=== PATIENT | female | born 1975 | race African-American/Black ===

== ENCOUNTER 2018-06-30 05:24 | Day surgery (SDC) | payer BC, OTHER ==
[2018-06-29 14:27] VITALS: BMI 23.9
[2018-06-30] MEDS ORDERED: PROPOFOL 20 ML ONE (09:35)
[2018-06-30] MEDS ORDERED: KETOROLAC TROMETHAMINE 30 MG/1 ML VIAL ONE (09:35)
[2018-06-30] MEDS ORDERED: DEXAMETHASONE SOD PHOSPHATE 4 MG/1 ML VIAL ONE (09:35)
[2018-06-30] MEDS ORDERED: MIDAZOLAM HCL 2 MG/2 ML SINGLE DOSE VIAL ONE (09:35)
[2018-06-30] MEDS ORDERED: ROCURONIUM BROMIDE 50 MG/5 ML VIAL ONE (09:37)
--- NOTE | 2018-06-30 09:40 | HP ---
History & Physical Update - Physical Physical: No Change - Assessment Assessment: No Change - Plan Plan: No Change
[2018-06-30] MEDS ORDERED: BUPIVACAINE HCL/PF 0.5% (5MG/ML) 10 ML VIAL ONE (10:08)
[2018-06-30] MEDS ORDERED: BUPIVACAINE HCL/PF (5 MG/ML) 30 ML VIAL IJ ONE ×2 (10:39→10:55)
[2018-06-30] MEDS ORDERED: NEOSTIGMINE METHYLSULFATE 0.5 MG/ML - 10 ML MDV ONE (10:51)
[2018-06-30] MEDS ORDERED: GLYCOPYRROLATE 0.2 MG/1 ML VIAL ONE (10:51)
--- NOTE | 2018-06-30 11:27 | OP ---
Operative Note - Note: Operative Date: 06/30/18 Pre-Operative Diagnosis: Multiparity voluntary sterilization Operation: Bilateral laparoscopic salpingectomy Findings: as dictated Post-Operative Diagnosis: Same as Pre-op Surgeon: Shanelle Patel Senior Mechanical Engineer: Letha Bright Anesthesiologist/TILE INSPECTOR: Alice Romero Anesthesia: General, Local (10cc .25% Marcaine injected at incision sites at completion of case) Specimens Removed: b/l fallopian tubes Estimated Blood Loss (mls): 3 (ml) Drains, Volume Out (mls): 100 (ml clear urine) Fluid Volume Replaced (mls): 800 (ml LFR) Operative Report Dictated: Yes
--- NOTE | 2018-06-30 11:30 | SURG ---
Surgery Button Sawyer Note Button Sawyer: Letha Bright PA-C (Suzy) Date of Service: 06/30/18 Diagnosis: Multiparity voluntary sterilization Procedure: Bilateral laparoscopic salpingectomy I was present for the entirety of the operative procedure. For further detail, please refer to operative report. Visit type - Case Type Case Type: Scheduled - Emergency Emergency Visit: No - New patient This patient is new to me today: Yes Date on this admission: 06/30/18 - Critical Care Critical Care patient: No
--- NOTE | 2018-06-30 14:00 | OP ---
DATE OF OPERATION: 06/30/2018 PREOPERATIVE DIAGNOSIS: Voluntary sterilization. OPERATION: Laparoscopic bilateral salpingectomy. SURGEON: Shanelle Patel MD FOLDING MACHINE OPERATOR: JANEL Shah ANESTHESIA: General. PROCEDURE: Patient was taken to the operating room, placed in dorsal lithotomy position, prepped and draped in the usual sterile fashion. A timeout was performed in accordance with hospital regulation. Bailon catheter was inserted into the bladder. Attention was then drawn to the umbilicus where a 5-mm umbilical incision was made. Veress needle was inserted into the cavity. Approximately 3-4 L of CO2 was insufflated into the cavity. Veress needle was then removed, and a 5-mm trocar was then inserted. Laparoscope and camera attached. Visualization revealed multiple leiomyomatous uterus, multiple myomas. Tubes were noted to be normal. Ovaries were noted to be normal. Two trocars were placed in the left and right lower abdomen after incisions had been made. Trocars were inserted under direct visualization. The LigaSure was attached and a grasper. The left tube was grasped, and coagulation and cutting of the left tube was then done. Left tube was removed. Then, the right tube was grasped and coagulation and cutting of the right tube was done and tube was removed. Tubes were bilaterally submitted to Pathology. All instruments were then removed. CO2 was removed from the abdomen. Incisions were then closed using 4-0 Vicryl suture in a continuous fashion. Wound was washed and dressed. Patient had tolerated the procedure well. Estimated blood loss 3 mL. Tuan [id number]
[2018-06-30 15:20] VITALS: BP 110/63; PULSE 75; TEMP 98.7
[2018-06-30] MEDS ORDERED: ACETAMINOPHEN 325 MG TABLET (FP) PO PRN (16:08)
[2018-06-30] MEDS ORDERED: oxyCODONE HCL 5 MG TABLET PO PRN (16:08)
[2018-06-30] MEDS ORDERED: ONDANSETRON 4 MG/2 ML VIAL IVPUSH PRN (16:08)
[2018-06-30] MEDS ORDERED: LACTATED RINGERS SOLUTION 1,000 ML IV SCH (16:15)
--- NOTE | 2018-07-01 15:53 | PATH ---
Surgical Pathology Report Patient Name: RADHA GUTIERREZ Med. Rec. #: [id number] /Age/Gender: 1975 (Age: 42) / F Account: [id number] Location: [facility] Taken: 06/30/2018 Received: 06/30/2018 Reported: 07/01/2018 Physicians: Shanelle Patel M.D. Specimen(s) Received A: RIGHT FALLOPIAN TUBE B: LEFT FALLOPIAN TUBE Clinical History Voluntary sterilization Final Diagnosis A. RIGHT FALLOPIAN TUBE, SALPINGECTOMY: COMPLETE CROSS SECTION OF THE FALLOPIAN TUBE LUMEN IDENTIFIED. B. LEFT FALLOPIAN TUBE, SALPINGECTOMY: COMPLETE CROSS SECTION OF THE FALLOPIAN TUBE LUMEN IDENTIFIED. Electronically Signed Mady Barger M.D. Gross Description A. Received in formalin labeled "right fallopian tube," is a 6 cm in length portion of fallopian tube. The outer surface is escamilla-pink with focal adhesions. Sectioning reveals an unremarkable lumen. Radial Drill Operator sections are submitted in 2 cassettes as follows: 1-fimbria; 2-cross sections of fallopian tube. B. Received in formalin labeled "left fallopian tube," is a 6 cm in length fimbriated fallopian tube. The outer surface is escamilla-pink and smooth. Sectioning reveals an unremarkable lumen. Radial Drill Operator sections are submitted in 2 cassettes as follows: 1-fimbria; 2-cross sections of fallopian tube. 06/30/2018 [facility]06/30/2018
== END 2018-06-30 15:20 | disposition home or self-care (01) ==
LOC: JASU-SURG 05:24
PROVIDERS: ATTEND Obstetrics & Gynecology
PROC: 0U574ZZ Destruction of Bilateral Fallopian Tubes, Percutaneous Endoscopic Approach (ICD-10-PCS; principal; 2018-06-30 10:00)
DX: Z30.2 Encounter for sterilization (principal)
CPT/HCPCS: 88302-TC; 94760

== ENCOUNTER 2019-10-27 23:04 | Emergency (ER) | payer BC ==
[2019-10-27 23:09] VITALS: TEMP 98.8; BMI 22.4
--- NOTE | 2019-10-27 23:11 | PDOC ---
Rapid Medical Evaluation Time Seen by Provider: 10/27/19 23:06 Medical Evaluation: Allergies Allergy/AdvReac Type Severity Reaction Status Date / Time No Known Allergies Allergy Verified 06/30/18 08:34 10/27/19 23:06 I have performed a brief in-person evaluation of this patient. CC: SOB; Covid negative 10/19. Works as nurse. PE: Resp even and unlabored. Lungs CTAB. RRR. No m/r/g. No edema present. Orders: labs, urine, ekg, cxr Patient will proceed to ED for further evaluation. Discharge Disposition - Diagnosis SOB (shortness of breath) - Referrals - Patient Instructions - Post Discharge Activity
[2019-10-27 23:40] LABS: BASO % 0.9 % (0-2.0); EOS % 5.2 % (0-4.5); HEMATOCRIT 33.8 % (32.4-45.2); HEMOGLOBIN 11.2 GM/dL (10.7-15.3); LYMPH % 43.5 % (8-40); MCH 25.4 pg (25.7-33.7); MCHC 33.3 g/dl (32.0-36.0); MEAN CELL VOLUME 76.4 fl (80-96); MEAN PLT VOLUME 8.1 fl (7.5-11.1); NEUT % 43.4 % (42.8-82.8); PLATELET COUNT 212 K/MM3 (134-434); RBC 4.42 M/mm3 (3.60-5.2); RDW 21.3 % (11.6-15.6)
[2019-10-28] MEDS ORDERED: ACETAMINOPHEN 1000 MG/100 ML VIAL (NON FORMULARY) IVPB ONE (00:10)
[2019-10-28 00:12] LABS: ALBUMIN 3.6 g/dl (3.4-5.0); ALK PHOS 32 U/L (45-117); ANION GAP 7 MMOL/L (8-16); BILIRUBIN,TOTAL 0.3 mg/dL (0.2-1); BLOOD UREA NITROGEN 9.4 mg/dL (7-18); CALCIUM 8.4 mg/dL (8.5-10.1); CHLORIDE 107 mmol/L (98-107); CO2 25 mmol/L (21-32); CREATININE 0.8 mg/dL (0.55-1.3); GLUCOSE,RANDOM 94 mg/dL (74-106); POTASSIUM 3.2 mmol/L (3.5-5.1); SGOT/AST 19 U/L (15-37); SGPT/ALT 23 U/L (13-61); SODIUM 139 mmol/L (136-145); TOT PROT 6.5 g/dl (6.4-8.2)
[2019-10-28] MEDS ORDERED: ACETAMINOPHEN INJECTION 100 ML IVPB ONE (00:13)
[2019-10-28] MEDS ORDERED: ALBUTEROL SO4 2.5/IPRATROPIUM 0.5 INH SOL 3 ML VIAL.NEB. NEB ONE ×2 (00:16→00:22)
[2019-10-28] MEDS ORDERED: POTASSIUM CHLORIDE TABS 20 MEQ TABLET.ER (FP) PO ONE ×2 (00:17→00:20)
[2019-10-28] MEDS ORDERED: DEXAMETHASONE LIQUID 0.5 MG/5 ML PO ONE (00:17)
[2019-10-28] MEDS ORDERED: DEXAMETHASONE SOD PHOSPHATE 10 MG/1 ML VIAL ONE (00:20)
--- NOTE | 2019-10-28 00:43 | PDOC ---
History of Present Illness - History of Present Illness Initial Comments: 10/28/19 00:40 43 with no PMH presented to the ED with SOB and chest tightness. These two complaints happened on and off today, but they got worse about 1 hour ago. She couldn't lay flat. Chest tightness localizes around the sternum, no radiation, pain 3/10. Albuterol helped a bit. Learning forward made it worse, relaxing made it better. Patient tested positive for covid back in June. But Tested negative in october. She denies F/N/V/D, headaches, changes of vision, abdominal pain, extremity swelling, unilat leg swelling, hx of blood clot, cancer, immobility. PSH:appendectomy, hysterctomy, csection. PMH: GERD Med: none Allergy:none SS: none ROS GENERAL/CONSTITUTIONAL: No fever or chills. No weakness. HEAD, EYES, EARS, NOSE AND THROAT: No change in vision. No ear pain or discharge. No sore throat. CARDIOVASCULAR: chest pain and shortness of breath RESPIRATORY: No cough, wheezing, or hemoptysis. GASTROINTESTINAL: No nausea, vomiting, diarrhea or constipation. GENITOURINARY: No dysuria, frequency, or change in urination. MUSCULOSKELETAL: No joint or muscle swelling or pain. No neck or back pain. SKIN: No rash NEUROLOGIC: No headache, vertigo, loss of consciousness, or change in strength/sensation. ENDOCRINE: No increased thirst. No abnormal weight change HEMATOLOGIC/LYMPHATIC: No anemia, easy bleeding, or history of blood clots. ALLERGIC/IMMUNOLOGIC: No hives or skin allergy. PE GENERAL: Awake, alert, and fully oriented, in mild acute distress HEAD: No signs of trauma, normocephalic, atraumatic EYES: PERRLA, EOMI, sclera anicteric, conjunctiva clear ENT: Auricles normal inspection, hearing grossly normal, nares patent, oropharynx clear without exudates. Moist mucosa NECK: Normal ROM, supple, no lymphadenopathy, JVD, or masses LUNGS: mild distress, speaks full sentences, clear to auscultation bilaterally. Diminished breath sound. HEART: Regular rate and rhythm, normal S1 and S2, no murmurs, rubs or gallops, peripheral pulses normal and equal bilaterally. ABDOMEN: Soft, nontender, normoactive bowel sounds. No guarding, no rebound. No masses EXTREMITIES : Normal inspection, Normal range of motion, no edema. No clubbing or cyanosis. NEUROLOGICAL: Cranial nerves II through XII grossly intact. Normal speech, normal gait, no focal sensorimotor deficits SKIN: Warm, Dry, normal turgor, no rashes or lesions noted <Reynaldo Rogerseu - Last Filed: 10/28/19 01:19> <Radha Mohamud - Last Filed: 10/28/19 06:35> - General Chief Complaint: Shortness of Breath Stated Complaint: SOB Time Seen by Provider: 10/27/19 23:06 Past History - Medical History Anemia: No Asthma: No Cancer: No Cardiac Disorders: No CVA: No COPD: No CHF: No Dementia: No Diabetes: No GI Disorders: Yes (gerd) Disorders: No HTN: No Hypercholesterolemia: No Kidney Stones: Yes Liver Disease: No Seizures: No Thyroid Disease: No - Surgical History Abdominal Surgery: No Appendectomy: Yes Cardiac Surgery: No Cholecystectomy: No Lung Surgery: No Neurologic Surgery: No Orthopedic Surgery: No - Psycho-Social/Smoking History Smoking Status: Yes Smoking History: Never smoked Have you smoked in the past 12 months: Yes Number of Cigarettes Smoked Daily: 5 If you are a former smoker, when did you quit?: 2016 - Substance Abuse Hx (Audit-C & DAST Scrn) How often the patient has a drink containing alcohol: Never Score: In Men: 4 or > Positive; In Women: 3 or > Positive: 0 Screen Result (Pos requires Nsg. Audit-10AR): Negative <RogersCuong - Last Filed: 10/28/19 01:19> <Radha Mohamud - Last Filed: 10/28/19 06:35> - Medical History Allergies/Adverse Reactions: Allergies Allergy/AdvReac Type Severity Reaction Status Date / Time No Known Allergies Allergy Verified 10/27/19 23:08 Home Medications: Ambulatory Orders Albuterol Sulfate Inhaler - [Ventolin HFA Inhaler -] 1 - 2 inh PO Q4H PRN #1 inhaler 10/28/19 Dexamethasone [Decadron] 4 mg PO ONCE #1 tablet 10/28/19 Dexamethasone [Decadron] 6 mg PO ONCE #1 tablet 10/28/19 Inhaler, Assist Devices [Space Chamber Plus] 1 each UTDICT #1 spacer 10/28/19 *Physical Exam - Vital Signs Last Vital Signs Temp Pulse Resp BP Pulse Ox 98.8 F 88 18 105/63 100 10/27/19 23:07 10/27/19 23:07 10/27/19 23:07 10/27/19 23:07 10/27/19 23:23 <Cuong Rogers - Last Filed: 10/28/19 01:19> - Vital Signs Last Vital Signs Temp Pulse Resp BP Pulse Ox 98.8 F 88 18 105/63 100 10/27/19 23:07 10/27/19 23:07 10/27/19 23:07 10/27/19 23:07 10/27/19 23:23 <Radha Mohamud - Last Filed: 10/28/19 06:35> ED Treatment Course - LABORATORY CBC & Chemistry Diagram: 10/27/19 23:20 10/27/19 23:14 - ADDITIONAL ORDERS Additional order review: Laboratory Results 10/27/19 10/27/19 23:20 23:14 PT with INR Cancelled INR Cancelled PTT (Actin FS) Cancelled Sodium 139 Potassium 3.2 L Chloride 107 Carbon Dioxide 25 Anion Gap 7 L BUN 9.4 Creatinine 0.8 Est GFR (CKD-EPI)AfAm 104.65 Est GFR (CKD-EPI)NonAf 90.30 Random Glucose 94 Calcium 8.4 L Magnesium 2.0 Total Bilirubin 0.3 AST 19 ALT 23 Alkaline Phosphatase 32 L Creatine Kinase 167 Creatine Kinase Index No Result Required. CK-MB (CK-2) < 1.0 Troponin I < 0.02 Total Protein 6.5 Albumin 3.6 10/27/19 23:20 RBC 4.42 MCV 76.4 L MCHC 33.3 RDW 21.3 H MPV 8.1 Neutrophils % 43.4 Lymphocytes % 43.5 H Monocytes % 7.0 Eosinophils % 5.2 H D Basophils % 0.9 - Medications Given in the ED: ED Medications Discontinued Medications Generic Name Dose Route Start Last Admin Trade Name Freq PRN Reason Stop Dose Admin Acetaminophen 1,000 mg 10/28/19 00:10 10/28/19 00:18 Ofirmev Injection - IVPB 10/28/19 00:11 1,000 mg ONCE ONE Administration Albuterol/Ipratropium 1 amp 10/28/19 00:22 10/28/19 00:25 Duoneb - NEB 10/28/19 00:23 1 amp ONCE ONE Administration Dexamethasone 10 mg 10/28/19 00:17 10/28/19 00:25 Decadron Liquid - PO 10/28/19 00:18 10 mg ONCE ONE Administration Potassium Chloride 40 meq 10/28/19 00:17 10/28/19 00:25 K-Dur - PO 10/28/19 00:18 40 meq ONCE ONE Administration <Cuong Rogers - Last Filed: 10/28/19 01:19> - LABORATORY CBC & Chemistry Diagram: 10/27/19 23:20 10/27/19 23:14 - ADDITIONAL ORDERS Additional order review: Laboratory Results 10/28/19 10/28/19 10/27/19 00:20 00:20 23:20 PT with INR 11.20 Cancelled INR 0.95 Cancelled PTT (Actin FS) 27.1 Cancelled D-Dimer 439 Sodium Potassium Chloride Carbon Dioxide Anion Gap BUN Creatinine Est GFR (CKD-EPI)AfAm Est GFR (CKD-EPI)NonAf Random Glucose Calcium Magnesium Total Bilirubin AST ALT Alkaline Phosphatase Creatine Kinase Creatine Kinase Index CK-MB (CK-2) Troponin I Total Protein Albumin 10/27/19 23:14 PT with INR INR PTT (Actin FS) D-Dimer Sodium 139 Potassium 3.2 L Chloride 107 Carbon Dioxide 25 Anion Gap 7 L BUN 9.4 Creatinine 0.8 Est GFR (CKD-EPI)AfAm 104.65 Est GFR (CKD-EPI)NonAf 90.30 Random Glucose 94 Calcium 8.4 L Magnesium 2.0 Total Bilirubin 0.3 AST 19 ALT 23 Alkaline Phosphatase 32 L Creatine Kinase 167 Creatine Kinase Index No Result Required. CK-MB (CK-2) < 1.0 Troponin I < 0.02 Total Protein 6.5 Albumin 3.6 10/27/19 23:20 RBC 4.42 MCV 76.4 L MCHC 33.3 RDW 21.3 H MPV 8.1 Neutrophils % 43.4 Lymphocytes % 43.5 H Monocytes % 7.0 Eosinophils % 5.2 H D Basophils % 0.9 - Medications Given in the ED: ED Medications Discontinued Medications Generic Name Dose Route Start Last Admin Trade Name Freq PRN Reason Stop Dose Admin Acetaminophen 1,000 mg 10/28/19 00:10 10/28/19 00:18 Ofirmev Injection - IVPB 10/28/19 00:11 1,000 mg ONCE ONE Administration Albuterol/Ipratropium 1 amp 10/28/19 00:22 10/28/19 00:25 Duoneb - NEB 10/28/19 00:23 1 amp ONCE ONE Administration Dexamethasone 10 mg 10/28/19 00:17 10/28/19 00:25 Decadron Liquid - PO 10/28/19 00:18 10 mg ONCE ONE Administration Potassium Chloride 40 meq 10/28/19 00:17 10/28/19 00:25 K-Dur - PO 10/28/19 00:18 40 meq ONCE ONE Administration <Radha Mohamud - Last Filed: 10/28/19 06:35> Medical Decision Making - Medical Decision Making 10/28/19 00:55 43 F with no PMH came here for SOB and chest tightness. DDX: pulmonary: SOB Cardiac: pericarditist, myocarditist, ACS, tamponance Vascular: PE Esophageal rupture. Lab: mostly normal. She did use albuterol before coming to the hospital. , troponin, d-dimer are negative. X-ray: pending. Med: IV tylenol, duoneb, steroid, KCl 10/28/19 01:19 <Cuong Rogers - Last Filed: 10/28/19 01:19> Discharge - Discharge Information Problems reviewed: Yes - Admission No <Cuong Rogers - Last Filed: 10/28/19 01:19> - Discharge Information Problems reviewed: Yes - Admission No <Radha Mohamud - Last Filed: 10/28/19 06:35> - Discharge Information Clinical Impression/Diagnosis: SOB (shortness of breath) Condition: Improved Disposition: HOME - Additional Discharge Information Prescriptions: Dexamethasone [Decadron] 4 mg PO ONCE #1 tablet Dexamethasone [Decadron] 6 mg PO ONCE #1 tablet Inhaler, Assist Devices [Space Chamber Plus] 1 each UTDICT #1 spacer Albuterol Sulfate Inhaler - [Ventolin HFA Inhaler -] 1 - 2 inh PO Q4H PRN #1 inhaler PRN Reason: Shortness Of Breath - Patient Discharge Instructions Additional Instructions: Discharge Instructions: You were seen in the emergency department for shortness of breath. Your chest xray, EKG, and labs did not show any concerning findings. Your symptoms may be due to your recent COVID infection. Home Care and Follow-Up: - You have been prescribed an albuterol inhaler. This may be used every 4 hours as needed for difficulty breathing. Use the prescribed spacer tube as directed. - You have also been prescribed one dose of a steroid, dexamethasone (Decadron). This should be taken on Wednesday (10/29/19). There may be 2 tablets; take both at the same time. - Call your primary doctor tomorrow to arrange a follow up appointment within the next 2-3 days - Seek immediate medical care for worsening symptoms, difficulty breathing that does not resolve with your albuterol, if you need to use your inhaler more frequently than every 4 hours, if you have chest pain, if you become lightheaded, have sweating/nausea/vomiting or any other symptoms with your difficulty breathing, or if you have any other medical emergency.
[2019-10-28 00:44] LABS: INR 0.95 (0.83-1.09); PROTHROMBIN TIME (PATIENT) 11.2 SEC (9.7-13.0)
[2019-10-28 00:47] LABS: ACTIVATED PTT 27.1 SECONDS (25.2-36.5)
--- NOTE | 2019-10-28 01:26 | PDOC ---
Documentation entered by Ninfa Franklin SCRIBE, acting as scribe for Elizabeth Mckee MD. Elizabeth Mckee MD: This documentation has been prepared by the robsonibeRigoberto Sydney, SCRIBE, under my direction and personally reviewed by me in its entirety. I confirm that the documentation accurately reflects all work, treatment, procedures, and medical decision making performed by me. Attending Attestation - Resident Resident Name: Cuong Rogers - ED Attending Attestation I have performed the following: I have examined & evaluated the patient, The case was reviewed & discussed with the resident, I agree w/resident's findings & plan, Exceptions are as noted - HPI HPI: 10/28/19 00:36 Patient is a 43 year old female with a significant past medical history of covid-19 (positive in June, tested negative early October) who presents to the ED with sudden onset chest tightness and shortness of breath that began today. As per patient, her 3/10 chest tightness feels like a brick on her sternum. Patient states the tightness and shortness of breath waxed and waned all day until suddenly her symptoms worsened, for which she took albuterol with some relief. Patient endorses she cannot lay down comfortably secondary to her symptoms. Denies fevers, chills, headache, nausea, vomiting, diarrhea, constipation, or any urinary changes. Allergies: NKDA - Physicial Exam PE: 10/28/19 00:38 GENERAL: Well-appearing, well-nourished. No apparent distress. HEENT: Normocephalic, atraumatic. PERRL, EOM intact. CARDIOVASCULAR: Normal S1, S2. Regular rate and rhythm. PULMONARY: Clear to auscultation bilaterally. ABDOMEN: Soft, non-distended, non-tender. EXTREMITIES: Normal ROM in all four extremities. No gross deformities. SKIN: Warm, dry. No rash NEUROLOGICAL: No focal neurological deficits. - Medical Decision Making 10/28/19 01:12 D-dimer is normal. 10/28/19 01:13 All labs are nomal K+ is 3.2; we will replete it. 10/28/19 01:26 CXR normal Pt is stable for d/c home Heart Score/ECG Review - ECG Intrepretation Rhythm: Regular Rhythm - P and [place] Prominent R with upright T in V1 (true posterior MT): No Delta Wave(s) Present: No WPW: No - QRS Poor R Wave Progression: No Q Wave Present: No - ST and T Early Repolarization: No Non Specific ST-T Wave changes: No Flattened T Waves: No - ECG Impressions Normal ECG: Yes Non-specific ST Elevation: No Ischemic Changes: No Bradycardia: No Torsades enrique Pointes: No WPW: No Discharge - Discharge Information Problems reviewed: Yes Clinical Impression/Diagnosis: SOB (shortness of breath) Condition: Improved Disposition: HOME - Additional Discharge Information Prescriptions: Dexamethasone [Decadron] 4 mg PO ONCE #1 tablet Dexamethasone [Decadron] 6 mg PO ONCE #1 tablet Inhaler, Assist Devices [Space Chamber Plus] 1 each MC UTDICT #1 spacer Albuterol Sulfate Inhaler - [Ventolin HFA Inhaler -] 1 - 2 inh PO Q4H PRN #1 inhaler PRN Reason: Shortness Of Breath - Follow up/Referral - Patient Discharge Instructions Additional Instructions: Discharge Instructions: You were seen in the emergency department for shortness of breath. Your chest xray, EKG, and labs did not show any concerning findings. Your symptoms may be due to your recent COVID infection. Home Care and Follow-Up: - You have been prescribed an albuterol inhaler. This may be used every 4 hours as needed for difficulty breathing. Use the prescribed spacer tube as directed. - You have also been prescribed one dose of a steroid, dexamethasone (Decadron). This should be taken on Wednesday (10/29/19). There may be 2 tablets; take both at the same time. - Call your primary doctor tomorrow to arrange a follow up appointment within the next 2-3 days - Seek immediate medical care for worsening symptoms, difficulty breathing that does not resolve with your albuterol, if you need to use your inhaler more frequently than every 4 hours, if you have chest pain, if you become lightheaded, have sweating/nausea/vomiting or any other symptoms with your difficulty breathing, or if you have any other medical emergency. - Post Discharge Activity
[2019-10-28 02:23] LABS: ANISOCYTOSIS 2+
[2019-10-28 02:24] LABS: PLATELET ESTIMATE ADEQUATE
[2019-10-28 04:25] VITALS: BP 95/56; PULSE 80
--- NOTE | 2019-10-28 14:59 | EKG ---
Test Reason : Blood Pressure : / mmHG Vent. Rate : 057 BPM Atrial Rate : 057 BPM P-R Int : 150 ms QRS Dur : 080 ms QT Int : 426 ms P-R-T Axes : 061 072 037 degrees QTc Int : 414 ms SINUS BRADYCARDIA OTHERWISE NORMAL ECG WHEN COMPARED WITH ECG OF 09-NOV-2015 16:35, NO SIGNIFICANT CHANGE WAS FOUND Confirmed by AYESHA BEARD MD ([id number]) on 10/28/2019 2:59:12 PM Referred By: Confirmed By:AYESHA BEARD MD
== END 2019-10-28 01:49 | disposition home or self-care (01) ==
LOC: JER 23:04
PROC: 3E033GC Introduction of Other Therapeutic Substance into Peripheral Vein, Percutaneous Approach (ICD-10-PCS; principal; 2019-10-28)
PROC: 3E0F7GC Introduction of Other Therapeutic Substance into Respiratory Tract, Via Natural or Artificial Opening (ICD-10-PCS; principal; 2019-10-28)
DX: R06.02 Shortness of breath (principal)
CPT/HCPCS: 36415; 71046-TC-FY; 80053; 82550; 82553; 83735; 84484; 85025; 85379; 85610; 85730; 93005; 93010; 99285-25; J0131; U0003

== ENCOUNTER 2021-06-17 17:33 | Emergency (ER) | payer BC ==
[2021-06-17 17:41] VITALS: BMI 22.4
[2021-06-17] MEDS ORDERED: SODIUM CHLORIDE 1,000 ML IV STA (18:05)
[2021-06-17] MEDS ORDERED: ACETAMINOPHEN 1000 MG/100 ML BAG IVPB ONE (18:05)
[2021-06-17] MEDS ORDERED: ACETAMINOPHEN INJECTION 100 ML IVPB ONE (18:21)
[2021-06-17 19:01] LABS: BASO % 0.4 % (0-2.0); EOS % 1.3 % (0-4.5); HEMATOCRIT 35.7 % (32.4-45.2); HEMOGLOBIN 11.6 GM/dL (10.7-15.3); MCH 25.4 pg (25.7-33.7); MCHC 32.5 g/dl (32.0-36.0); MEAN CELL VOLUME 78.3 fl (80-96); MONO % 12.3 % (3.8-10.2); PLATELET COUNT 204 10^3/uL (134-434); RBC 4.56 M/mm3 (3.60-5.2); RDW 15.3 % (11.6-15.6)
[2021-06-17 19:06] LABS: INR 1.16 (0.83-1.09); PH,URINE 7.5 (5.0-8.0); PROTHROMBIN TIME (PATIENT) 13.4 SEC (9.7-13.0); URINE APPEARANCE CLEAR; URINE BILIRUBIN NEGATIVE (NEGATIVE); URINE COLOR YELLOW; URINE GLUCOSE (UA) NEGATIVE (NEGATIVE); URINE KETONE NEGATIVE (NEGATIVE); URINE LEUK ESTERASE NEGATIVE (NEGATIVE); URINE NITRITE NEGATIVE (NEGATIVE); URINE PROTEIN NEGATIVE (NEGATIVE); URINE UROBILINOGEN 0.2 mg/dL (0.2-1.0)
[2021-06-17 19:07] LABS: HCG,QUALITATIVE URINE Negative
[2021-06-17 19:12] LABS: CALCIUM 8.7 mg/dL (8.5-10.1)
[2021-06-17 19:13] LABS: ALBUMIN 3.7 g/dl (3.4-5.0); BLOOD UREA NITROGEN 13.8 mg/dL (7-18)
[2021-06-17 19:18] LABS: BILIRUBIN,TOTAL 0.5 mg/dL (0.2-1); TOT PROT 6.5 g/dl (6.4-8.2)
[2021-06-17 22:54] VITALS: BP 124/78; PULSE 87; TEMP 98.2
== END 2021-06-17 22:53 | disposition home or self-care (01) ==
LOC: JER 17:33
PROC: 3E0333Z Introduction of Anti-inflammatory into Peripheral Vein, Percutaneous Approach (ICD-10-PCS; principal; 2021-06-17)
PROC: 3E0337Z Introduction of Electrolytic and Water Balance Substance into Peripheral Vein, Percutaneous Approach (ICD-10-PCS; 2021-06-17)
DX: R19.7 Diarrhea, unspecified (principal)
CPT/HCPCS: 36415; 74177-TC; 80053; 81003; 84703; 85025; 85610; 87086; 99285-25

== ENCOUNTER 2022-08-05 17:30 | Emergency (ER) | payer BC ==
[2022-08-05 17:42] VITALS: BP 128/83; PULSE 75; RESP 18; TEMP 97.9; BMI 25.1
[2022-08-05] MEDS ORDERED: FAMOTIDINE 20 MG/50 ML IVPB 20 MG/50 ML MG IVPB ONE ×2 (18:33→18:42)
[2022-08-05] MEDS ORDERED: MAG HYDROX/AL HYDROX/SIMETH 30 ML UNIT-DOSE CUP PO ONE (18:33)
[2022-08-05] MEDS ORDERED: MAG HYDROX/AL HYDROX/SIMETH 30 ML UNIT-DOSE CUP ONE (18:42)
[2022-08-05 18:53] LABS: BASO % 1.6 % (0-2.0); HEMATOCRIT 31.8 % (32.4-45.2); HEMOGLOBIN 10.3 GM/dL (10.7-15.3); LYMPH % 15.1 % (8-40); MCH 21.8 pg (25.7-33.7); MCHC 32.4 g/dl (32.0-36.0); MEAN CELL VOLUME 67.4 fl (80-96); MEAN PLT VOLUME 7.5 fl (7.5-11.1); MONO % 10.4 % (3.8-10.2); NEUT % 69.9 % (42.8-82.8); PLATELET COUNT 427 10^3/uL (134-434); RBC 4.72 M/mm3 (3.60-5.2); RDW 18.2 % (11.6-15.6); WHITE BLOOD COUNT 5.5 K/mm3 (4.0-10.0)
[2022-08-05] MEDS ORDERED: SODIUM CHLORIDE 0.9% 500 ML INFUS.BAG IV ONE (18:59)
[2022-08-05 19:13] LABS: ALBUMIN 3.6 g/dl (3.4-5.0); CALCIUM 8.8 mg/dL (8.5-10.1)
[2022-08-05 19:16] LABS: CREATININE 0.7 mg/dL (0.55-1.3)
[2022-08-05 19:18] LABS: ANISOCYTOSIS 2+; BILIRUBIN,TOTAL 0.2 mg/dL (0.2-1); MACROCYTOSIS 0; TARGET CELLS 1+; TEAR DROP CELLS 1+; TOT PROT 7.4 g/dl (6.4-8.2)
[2022-08-05] MEDS ORDERED: ACETAMINOPHEN 1000 MG/100 ML BAG IVPB ONE (21:38)
== END 2022-08-05 23:38 | disposition home or self-care (01) ==
LOC: JER 17:30
PROC: 3E033GC Introduction of Other Therapeutic Substance into Peripheral Vein, Percutaneous Approach (ICD-10-PCS; principal; 2022-08-05)
PROC: 3E033NZ Introduction of Analgesics, Hypnotics, Sedatives into Peripheral Vein, Percutaneous Approach (ICD-10-PCS; 2022-08-05)
DX: R07.2 Precordial pain (principal); R11.10 Vomiting, unspecified; R63.0 Anorexia
CPT/HCPCS: 36415; 71045-TC-FY; 71275-TC; 80053; 83690; 84484; 85025; 85379; 93005; 93010; 99285-25

== ENCOUNTER 2023-11-15 19:04 | Emergency (ER) | payer BC ==
[2023-11-15 19:13] VITALS: BP 123/73; PULSE 85; RESP 18; TEMP 98.5; BMI 25.1
[2023-11-15] MEDS ORDERED: ACETAMINOPHEN 325 MG TABLET (FP) ONE (19:53)
[2023-11-15 19:56] LABS: BASO % 0.5 % (0-2.0); EOS % 1.1 % (0-4.5); HEMATOCRIT 36.9 % (32.4-45.2); HEMOGLOBIN 12.5 GM/dL (10.7-15.3); LYMPH % 26.1 % (8-40); MCH 26.2 pg (25.7-33.7); MCHC 33.7 g/dl (32.0-36.0); MEAN CELL VOLUME 77.9 fl (80-96); MEAN PLT VOLUME 7.5 fl (7.5-11.1); NEUT % 62.3 % (42.8-82.8); PLATELET COUNT 183 10^3/uL (134-434); RBC 4.75 M/mm3 (3.60-5.2); RDW 15.1 % (11.6-15.6); WHITE BLOOD COUNT 4.9 K/mm3 (4.0-10.0)
[2023-11-15] MEDS: ACETAMINOPHEN 500 MG TABLET (FP) PO ONE (19:59)
[2023-11-15 20:21] LABS: POTASSIUM 3.7 mmol/L (3.5-5.1)
[2023-11-15 20:23] LABS: ALBUMIN 4.1 g/dl (3.4-5.0); BLOOD UREA NITROGEN 13.1 mg/dL (7-18); CALCIUM 9.3 mg/dL (8.5-10.1)
[2023-11-15 20:26] LABS: CREATININE 0.8 mg/dL (0.55-1.3)
[2023-11-15 20:28] LABS: BILIRUBIN,TOTAL 0.4 mg/dL (0.2-1); TOT PROT 7.3 g/dl (6.4-8.2)
[2023-11-15] MEDS ORDERED: PANTOPRAZOLE SODIUM 40 MG/100 ML BAG IVPB ONE (21:43)
[2023-11-15] MEDS ORDERED: SUCRALFATE 1 GM TABLET (FP) ONE (21:43)
[2023-11-15] MEDS ORDERED: FAMOTIDINE 20 MG/50 ML IVPB 20 MG/50 ML MG IVPB ONE (21:43)
[2023-11-15] MEDS: PANTOPRAZOLE SODIUM 40 MG VIAL IVPUSH ONE (21:49)
[2023-11-15] MEDS: SUCRALFATE 1 GM TABLET (FP) PO ONE (21:49)
[2023-11-15] MEDS: FAMOTIDINE 20 MG/50 ML IVPB 20 MG/50 ML MG IVPB ONE (22:16)
== END 2023-11-15 22:53 | disposition home or self-care (01) ==
LOC: JER 19:04
PROC: 3E033GC Introduction of Other Therapeutic Substance into Peripheral Vein, Percutaneous Approach (ICD-10-PCS; principal; 2023-11-15)
PROC: 3E033GC Introduction of Other Therapeutic Substance into Peripheral Vein, Percutaneous Approach (ICD-10-PCS; 2023-11-15)
DX: R07.89 Other chest pain (principal)
CPT/HCPCS: 36415; 71046-TC-FY; 80053; 84484; 85025; 93005; 93010; 99285-25